=== PATIENT | male | born 1960 | race Caucasian/White ===

== ENCOUNTER 2019-05-28 16:12 | Emergency (ER) | payer BC, OTHER ==
--- NOTE | 2019-05-28 17:40 | ER Document Report ---
ED Medical Screen (RME) - General Chief Complaint: Bloody Stools Stated Complaint: ABDOMINAL PAIN,DIARRHEA,BLOOD IN STOOL Time Seen by Provider: 05/28/19 17:31 Notes: HPI: 59-year-old male with prior history of C. difficile colitis in December 2018 presenting for multiple episodes of diarrhea today with abdominal cramping in the epigastric region. Patient states this feels similar to when he had C. difficile colitis. States that he moved his bowels so frequently today that he eventually started seeing a pink tinge with the bowel movements. States he did have some nausea no actual vomiting no fever I have greeted and performed a rapid initial assessment of this patient. A comprehensive ED assessment and evaluation of the patient, analysis of test results and completion of the medical decision making process will be conducted by additional ED providers PHYSICAL EXAMINATION: GENERAL: Well-appearing, well-nourished and in mild acute distress. HEAD: Atraumatic, normocephalic. EYES: sclera anicteric, conjunctiva are normal. ENT: Moist mucous membranes. NECK: Normal range of motion LUNGS: Normal work of breathing, clear to auscultation HEART: 2+ radial pulses bilaterally, regular rate and rhythm ABD: limited by positioning for exam in triage. Mild tenderness in the left upper right upper and epigastric region on palpation no lower abdominal discomfort on palpation EXTREMITIES: no pitting or edema. No cyanosis. NEUROLOGICAL: No focal neurological deficits. Moves all extremities spontaneously and on command. PSYCH: Normal mood, normal affect. SKIN: Warm, Dry, normal turgor, no rashes or lesions noted. TRAVEL OUTSIDE OF THE [place] IN LAST 30 DAYS: No - Related Data Allergies/Adverse Reactions: No Known Allergies Allergy (Verified 05/28/19 17:31) Past Medical History - Social History Frequency of alcohol use: Social Drug Abuse: None Physical Exam - Vital signs Vitals: Temp Pulse Resp BP Pulse Ox 98.3 F 62 16 159/78 H 97 05/28/19 16:48 05/28/19 16:48 05/28/19 16:48 05/28/19 16:48 05/28/19 16:48 Course - Vital Signs Vital signs: Temp Pulse Resp BP Pulse Ox 98.3 F 62 16 159/78 H 97 05/28/19 16:48 05/28/19 16:48 05/28/19 16:48 05/28/19 16:48 05/28/19 16:48
[2019-05-28 18:44] LABS: ABSOLUTE BASOPHILS # (AUTO) 0.1 10^3/uL (0.0-0.2); ABSOLUTE LYMPHOCYTES (AUTO) 0.8 10^3/uL (0.5-4.7); ABSOLUTE MONOCYTES (AUTO) 0.4 10^3/uL (0.1-1.4); ABSOLUTE NEUT (AUTO) 9.8 10^3/uL (1.7-8.2); BASOPHILS % (AUTO) 0.5 % (0-2); EOSINOPHILS % (AUTO) 0.1 % (0-6); HEMATOCRIT 43.3 % (37.9-51.0); HEMOGLOBIN 14.5 g/dL (13.5-17.0); LYMPHOCYTES % (AUTO) 7.3 % (13-45); MEAN CORPUSCULAR HEMOGLOBIN 32.1 pg (27.0-33.4); MEAN CORPUSCULAR HGB CONC 33.5 g/dL (32.0-36.0); MEAN CORPUSCULAR VOLUME 96 fl (80-97); PLATELET COUNT 263 10^3/uL (150-450); RED BLOOD COUNT 4.52 10^6/uL (4.35-5.55); RED CELL DISTRIBUTION WIDTH 14.1 % (11.5-14.0); SEGMENTED NEUTROPHILS % (AUTO) 88.1 % (42-78); TOTAL CELLS COUNTED % (AUTO) 100 %; WHITE BLOOD COUNT 11.1 10^3/uL (4.0-10.5)
[2019-05-28 18:50] LABS: APPEARANCE,URINE SLIGHTLY-CLOUDY; BILIRUBIN,URINE NEGATIVE (NEGATIVE); COLOR,URINE YELLOW; GLUCOSE, URINE NEGATIVE (NEGATIVE); KETONES,URINE NEGATIVE (NEGATIVE); LEUKOCYTE ESTERASE,URINE NEGATIVE (NEGATIVE); NITRITE,URINE NEGATIVE (NEGATIVE); PROTEIN,URINE NEGATIVE (NEGATIVE); URINE SPECIFIC GRAVITY 1.025; UROBILINOGEN,URINE NEGATIVE mg/dL (<2.0)
[2019-05-28 19:02] LABS: ALBUMIN 4.7 g/dL (3.5-5.0); ALKALINE PHOSPHATASE 48 U/L (38-126); ANION GAP 8 (5-19); ASPARTATE AMINO TRANSFERASE 29 U/L (17-59); BILIRUBIN,TOTAL 1.5 mg/dL (0.2-1.3); BLOOD UREA NITROGEN 15 mg/dL (7-20); CALCIUM 9.7 mg/dL (8.4-10.2); CARBON DIOXIDE 26 mmol/L (22-30); CHLORIDE 102 mmol/L (98-107); GLUCOSE 106 mg/dL (75-110); POTASSIUM 5.1 mmol/L (3.6-5.0); TOTAL PROTEIN 7.4 g/dL (6.3-8.2)
[2019-05-28] MEDS ORDERED: NORMAL SALINE 1000 ML 1,000 ML IV ONE (21:16)
--- NOTE | 2019-05-28 21:16 | ER Document Report ---
ED GI/ - General Chief Complaint: Bloody Stools Stated Complaint: ABDOMINAL PAIN,DIARRHEA,BLOOD IN STOOL Time Seen by Provider: 05/28/19 17:31 Notes: Patient is a 59-year-old male that comes to the emergency department for chief complaint of abdominal pain, abdominal cramping, and diarrhea. He states he had over 30 episodes of diarrhea today, he states that most the time he would cramp, go to the bathroom, had a very small bowel movement, and that was it. He states that he started seeing some pinkish change to his bowels but he denies overt bloody stools. He denies vomiting or fever. He denies severe pain in the abdomen. He states he has a history of C. difficile after he was treated with multiple antibiotics for an upper respiratory infection last year, he was treated for C. difficile previously. He denies any surgeries on the abdomen except bilateral inguinal repair as a child. He denies any daily medications. He denies recreational drugs. He drinks alcohol 3 times a week. TRAVEL OUTSIDE OF THE [place] IN LAST 30 DAYS: No - Related Data Allergies/Adverse Reactions: No Known Allergies Allergy (Verified 05/28/19 17:31) Past Medical History - General Information source: Patient - Social History Smoking Status: Never Smoker Frequency of alcohol use: Social Drug Abuse: None Lives with: Family Family History: Reviewed & Not Pertinent Patient has suicidal ideation: No Patient has homicidal ideation: No Infectious Medical History: Reports: Hx C-Diff - Immunizations Immunizations up to date: Yes Hx Diphtheria, Pertussis, Tetanus Vaccination: Yes Review of Systems - Review of Systems Constitutional: No symptoms reported EENT: No symptoms reported Cardiovascular: No symptoms reported Respiratory: No symptoms reported Gastrointestinal: See HPI Genitourinary: No symptoms reported Male Genitourinary: No symptoms reported Musculoskeletal: No symptoms reported Skin: No symptoms reported Hematologic/Lymphatic: No symptoms reported Neurological/Psychological: No symptoms reported Physical Exam - Vital signs Vitals: Temp Pulse Resp BP Pulse Ox 98.3 F 62 16 159/78 H 97 05/28/19 16:48 05/28/19 16:48 05/28/19 16:48 05/28/19 16:48 05/28/19 16:48 - Notes Notes: GENERAL: Alert, interacts well. No acute distress. HEAD: Normocephalic, atraumatic. EYES: Pupils equal, round, and reactive to light. Extraocular movements intact. ENT: Oral mucosa moist, tongue midline. Oropharynx unremarkable. Airway patent. LUNGS: Clear to auscultation bilaterally, no wheezes, rales, or rhonchi. No respiratory distress. HEART: Regular rate and rhythm. No murmur ABDOMEN: Very mild diffuse abdominal tenderness, no rigidity or guarding, no significant distention, bowel sounds are present. GENITOURINARY: Deferred EXTREMITIES: Moves all 4 extremities spontaneously. No edema, normal radial and dorsalis pedis pulses bilaterally. No cyanosis. BACK: no cervical, thoracic, lumbar midline tenderness. No saddle anesthesia, normal distal neurovascular exam. Moves all extremities in full range of motion. NEUROLOGICAL: Alert and oriented x3. Normal speech. Cranial nerves II through XII grossly intact. PSYCH: Normal affect, normal mood. SKIN: Warm, dry, normal turgor. No rashes or lesions noted. Course - Re-evaluation Re-evalutation: Patient has minimal diffuse tenderness over the abdomen, nonspecific, no guarding. He is quite well-appearing actually. Vital signs unremarkable. CBC shows mild leukocytosis at 11,000 with no bandemia. Elevation of neutrophils is present. Chemistry nonspecific. Urine does indicate dehydration, he was given IV fluids. Patient has received CAT scan from triage, he has stool pending for C. difficile. C. difficile is negative. CT does show evidence of colitis but there is no abscess, perforation, or concerning findings otherwise. Patient is well- appearing, states he would like to go home. He did tolerate p.o. without any difficulty. Patient discussed with Dr. Souza. Recommendation is for Sumit Walter, symptomatic management, very close follow-up with primary care, and return precautions. I discussed this with patient in detail. He states und erstanding and agreement with plan. Stable and well-appearing at time of discharge. - Vital Signs Vital signs: Temp Pulse Resp BP Pulse Ox 98.2 F 109 H 16 144/92 H 95 05/29/19 01:52 05/29/19 01:52 05/29/19 01:52 05/29/19 01:52 05/29/19 01:52 - Laboratory Result Diagrams: 05/28/19 18:35 05/28/19 18:35 Laboratory results interpreted by me: 05/28/19 05/28/19 05/28/19 18:15 18:35 18:35 WBC 11.1 H RDW 14.1 H Lymph % (Auto) 7.3 L Absolute Neuts (auto) 9.8 H Seg Neutrophils % 88.1 H Sodium 136.1 L Potassium 5.1 H Total Bilirubin 1.5 H Urine Blood MODERATE H Discharge - Discharge Clinical Impression: Colitis Diarrhea Qualifiers: Diarrhea type: unspecified type Qualified Code(s): R19.7 - Diarrhea, unspecified Abdominal pain Qualifiers: Abdominal location: generalized Qualified Code(s): R10.84 - Generalized abdominal pain Condition: Stable Disposition: HOME, SELF-CARE Additional Instructions: Your imaging shows colitis, inflammation/infection of the large intestine. Your C. difficile test is negative. Take the antibiotics as prescribed to completion, take the pain and nausea medicine as prescribed. I recommend clear fluid diet for the first 24 hours, afterwards progressed to bland diet and progr ess from there. Follow-up close with primary care for recheck and additional management. Return if you worsen including severe worsening pain, fever, vomiting, or any other concerning or worsening symptoms. Prescriptions: Ciprofloxacin HCl [Cipro 500 mg Tablet] 500 mg PO BID 7 Days #14 tablet Metronidazole [Flagyl 500 mg Tablet] 500 mg PO TID 7 Days #21 tablet Oxycodone HCl/Acetaminophen [Percocet 5-325 mg Tablet] 1 - 2 tab PO TID PRN #12 tablet PRN Reason: Ondansetron [Zofran Odt 4 mg Tablet] 1 - 2 tab PO Q4H PRN #15 tab.rapdis PRN Reason: For Nausea/Vomiting
[2019-05-28] MEDS ORDERED: ONDANSETRON HCL INJ/PF 4 MG/2 ML SDV IV ONE (21:17)
[2019-05-28] MEDS ORDERED: MORPHINE SULFATE 10 MG/ML INJ IV ONE (21:20)
--- NOTE | 2019-05-28 21:23 | RADIOLOGY REPORT (SQ) ---
EXAM DESCRIPTION: CT ABDOMEN PELVIS WITH IV CONTRAST COMPLETED DATE/TME: 05/28/2019 17:37 CLINICAL HISTORY: 59 years, Male, abd pain, C diff history COMPARISON: None. TECHNIQUE: Contrast enhanced CT of the abdomen/pelvis was acquired. Images were obtained after the uneventful administration of 100 mL of Omnipaque 350 intravenous contrast. Images stored on PACS. All CT scanners at this facility use dose modulation, iterative reconstruction, and/or weight based dosing when appropriate to reduce radiation dose to as low as reasonably achievable (ALARA). [facility]: Dose Right [facility]: CareDose [facility]: Dose Right [facility]: Teradose 4D [facility]: [employer] LIMITATIONS: None. FINDINGS: Limited evaluation of the lower chest reveals clear lung bases. The liver, spleen, pancreas, gallbladder, and both adrenal glands appear normal. Both kidneys enhance symmetrically. There is no hydronephrosis or hydroureter. The urinary bladder is collapsed, thus its evaluation is limited. The colon is largely collapsed though there is suspected circumferential wall thickening involving the transverse and descending segments. No evidence of bowel obstruction. The appendix is not visualized. However, no pericecal inflammatory changes are appreciated. Vascular structures opacify with contrast normally. No suspicious lymphadenopathy or drainable fluid collections are appreciated. Bone windows show no destructive osseous lesions. IMPRESSION: Mild circumferential wall thickening involving the transverse and descending segments of the colon. Correlate for an infectious/inflammatory colitis, to include C. difficile colitis. TECHNICAL DOCUMENTATION: Quality ID # [id number]: Final reports with documentation of one or more dose reduction techniques (e.g., Automated exposure control, adjustment of the mA and/or kV according to patient size, use of iterative reconstruction technique) copyright 2011 [employer] website- All Rights Reserved
[2019-05-29] MEDS ORDERED: KETOROLAC TROMETHAMINE INJ/PF 30 MG/1 ML SDV IV ONE (00:09)
[2019-05-29 01:02] LABS: C DIFFICILE GDH NEGATIVE (NEGATIVE)
[2019-05-29] MEDS ORDERED: METRONIDAZOLE 500 MG TABLET PO ONE (01:37)
[2019-05-29] MEDS ORDERED: CIPROFLOXACIN HCL 500 MG TABLET PO ONE (01:37)
[2019-05-29] MEDS ORDERED: HYDROCODONE/ACETAMINOPHEN 5-325 MG (6 TAB/ER DISP) PO PRN (01:38)
[2019-05-29 01:53] VITALS: BP 144/92
== END 2019-05-29 01:58 | disposition home or self-care (01) ==
LOC: ER 16:12
DX: K52.9 Noninfective gastroenteritis and colitis, unspecified (principal); R10.84 Generalized abdominal pain
CPT/HCPCS: 99284; 96361; 96374; 36415; 83690; 85025; 80053; 81001; 87324; 87449; 74177; J1885; J7030